=== PATIENT | female | born 1990 | race Caucasian/White ===

== ENCOUNTER 2016-10-03 14:07 | Emergency (ER) | payer OTHER | END 2016-10-03 16:44 | disposition home or self-care (01) | LOC: FER 14:07 | DX: S16.1XXA Strain of muscle, fascia and tendon at neck level, initial encounter (principal); S46.911A Strain of unspecified muscle, fascia and tendon at shoulder and upper arm level, right arm, initial encounter; S39.94XA Unspecified injury of external genitals, initial encounter; M25.561 Pain in right knee; R51 Headache; W01.10XA Fall on same level from slipping, tripping and stumbling with subsequent striking against unspecified object, initial encounter; Y92.512 Supermarket, store or market as the place of occurrence of the external cause | CPT/HCPCS: 72040; 72170; 73030; 73564 ==